=== PATIENT | male | born 1985 | race Caucasian/White ===

== ENCOUNTER 2019-04-28 21:10 | Emergency (ER) | payer MEDICAID ==
--- NOTE | 2019-04-28 21:43 | EDM.PDOC ---
ED HPI GENERAL MEDICAL PROBLEM - General Chief Complaint: Behavioral/Psych Time Seen by Provider: 04/28/19 21:28 Source of Information: Reports: Patient History Limitations: Reports: Altered Mental Status (Patient not oriented to situation.) - History of Present Illness INITIAL COMMENTS - FREE TEXT/NARRATIVE: 33-year-old male who presents to the emergency department with his aunt via private vehicle complaining of having worsening visual and auditory hallucinations and unable to control his thoughts. He tells me "I need to go to [facility]". He has fairly disorganized thought processes and really can' t tell me anything much more clearly than this. He talks about not sleeping or eating and then seems to report that he feels that he might try to harm himself or other people and then begins to talk about his Suboxone therapy. He apparently began Suboxone therapy about a week ago and he reports that since that time he has intermittently had itching all over. Yesterday he states he was basically up most of the night and he reports that he was outside smoking cigarettes continuously and he has irritation of his face. He also reports he had vomiting last night and again today several times. He reports that he has not been eating he denies any pain currently. And when he is asked about a rash that he has on his face and trunk as well as scratching all over, he reports that it due to his exposure to the cold and he becomes quite verbally aggressive when you try to discuss this with him. He denies any cough or trouble breathing. He is unable to tell me his medications. He seems to become more disorganized and less coherent as time goes on. No reported fevers or chills. There are no other associated signs or symptoms. There are no other modifying factors. No other history can be obtained.. Onset: Other (Unclear weeks 2 days) Duration: Getting Worse Location: Reports: Other (No pain) Quality: Reports: Other (Denies pain) Improves with: Reports: None Worsens with: Reports: None Context: Reports: Other (As above) Associated Symptoms: Reports: No Other Symptoms (Except as above) Treatments OPERATIONS OFFICER AFLOAT: Reports: Other (see below) (Nothing) - Related Data Allergies Allergy/AdvReac Type Severity Reaction Status Date / Time No Known Allergies Allergy Verified 01/01/16 18:38 Home Meds: Home Meds . [Unable to Verify Home Med List] 04/28/19 [History] Past Medical History Cardiovascular History: Reports: Hypertension Respiratory History: Reports: Asthma Other Musculoskeletal History: RT SHOULDER PAIN Neurological History: Reports: Seizure Psychiatric History: Reports: Addiction, Bipolar, Depression, Hallucinations, Mood Swings - Infectious Disease History Infectious Disease History: Reports: Hepatitis C - Past Surgical History Other Surgical History Comment: No previous surgeries. Social & Family History - Tobacco Use Smoking Status *Q: Current Every Day Smoker - Caffeine Use Caffeine Use: Reports: None - Alcohol Use Alcohol Use History: Yes - Recreational Drug Use Recreational Drug Use: No Recreational Drug Use Comment: Patient denies use of illicit drugs. ED ROS GENERAL - Review of Systems Review Of Systems: See Below Constitutional: Reports: No Symptoms HEENT: Reports: No Symptoms Respiratory: Reports: No Symptoms Cardiovascular: Reports: No Symptoms GI/Abdominal: Reports: No Symptoms : Reports: No Symptoms Musculoskeletal: Reports: No Symptoms Skin: Reports: Rash, Other (Itching all over) Neurological: Reports: No Symptoms Psychiatric: Reports: Hallucinations, Homicidal Ideation, Suicidal Ideation. Denies: Cravings Hematologic/Lymphatic: Reports: No Symptoms Immunologic: Reports: No Symptoms - Physical Exam Exam: See Below Exam Limited By: No Limitations General Appearance: Alert, Moderate Distress, Obese Eye Exam: Bilateral Eye: EOMI, Normal Inspection Ears: Normal External Exam Nose: Normal Inspection Throat/Mouth: Normal Voice, No Airway Compromise, Other (Try mucous membranes) Head Exam: Atraumatic, Normocephalic Neck: Normal Inspection, Supple, Non-Tender, Full Range of Motion Respiratory/Chest: No Respiratory Distress, Lungs Clear, Normal Breath Sounds, No Accessory Muscle Use, Chest Non-Tender Cardiovascular: No Murmur, Tachycardia GI/Abdominal: Normal Bowel Sounds, Soft, Non-Tender, No Mass Neuro Exam (Abbreviated): Alert, Oriented, CN II-XII Intact, No Motor/Sensory Deficits Back Exam: Normal Inspection, Full Range of Motion Extremities: Normal Inspection, Normal Range of Motion, Non-Tender, No Pedal Edema, Normal Capillary Refill Psychiatric: Flat Affect Skin Exam: Warm, Dry, Intact, Rash Course - Vital Signs Last Recorded V/S: Last Vital Signs Temp 36.8 C 04/28/19 21:10 Pulse 130 H 04/28/19 21:10 Resp 16 04/28/19 21:10 BP 149/83 H 04/28/19 21:10 Pulse Ox 96 04/28/19 21:10 - Orders/Labs/Meds Orders: Active Orders 24 hr Category Date Time Status EKG Documentation Completion [RC] ASDIRECTED Care 04/28/19 21:52 Active Sodium Chloride 0.9% [Normal Saline] 1,000 ml Med 04/28/19 22:00 Active IV ASDIRECTED Sodium Chloride 0.9% [Saline Flush] Med 04/28/19 21:51 Active 10 ml FLUSH ASDIRECTED PRN Peripheral IV Insertion Adult [OM.PC] Routine Oth 04/28/19 21:51 Ordered EKG 12 Lead [EK] Routine Ther 04/28/19 21:51 Ordered Medication Orders Sodium Chloride (Normal Saline) 1,000 mls @ 150 mls/hr IV ASDIRECTED IVAN Last Admin: 04/29/19 00:53 Dose: 150 mls/hr Sodium Chloride (Saline Flush) 10 ml FLUSH ASDIRECTED PRN PRN Reason: Keep Vein Open Last Admin: 04/28/19 22:17 Dose: 10 ml Labs: Laboratory Tests 04/28/19 04/28/19 04/28/19 Range/Units 20:04 20:04 20:04 WBC 6.9 (4.5-12.0) X10-3/uL RBC 4.79 (4.30-5.75) x10(6)uL Hgb 15.8 (13.5-17.8) g/dL Hct 44.7 (30.0-51.3) % MCV 93.2 (80-96) fL MCH 33.0 (27.7-33.6) pg MCHC 35.4 (32.2-35.4) g/dL RDW 12.9 (11.5-15.5) % Plt Count 226 (125-369) X10(3)uL MPV 7.7 (7.4-10.4) fL Neut % (Auto) 63.8 (46-82) % Lymph % (Auto) 24.6 (13-37) % Wheeler % (Auto) 8.2 (4-12) % Eos % (Auto) 3 (1.0-5.0) % Baso % (Auto) 0 (0-2) % Neut # (Auto) 4.4 (1.6-8.3) # Lymph # (Auto) 1.7 (0.6-5.0) # Wheeler # (Auto) 0.6 (0.0-1.3) # Eos # (Auto) 0.2 (0.0-0.8) # Baso # (Auto) 0.0 (0.0-0.2) # Sodium 141 (135-145) mmol/L Potassium 3.4 L (3.5-5.3) mmol/L Chloride 102 (100-110) mmol/L Carbon Dioxide 28 (21-32) mmol/L BUN 8 (7-18) mg/dL Creatinine 1.1 (0.70-1.30) mg/dL Est Cr Clr Drug Dosing TNP Estimated GFR (MDRD) > 60 (>60) BUN/Creatinine Ratio 7.3 L (9-20) Glucose 146 H (80-116) mg/dL Calcium 8.7 (8.6-10.2) mg/dL Magnesium 1.6 L (1.8-2.5) mg/dL Total Bilirubin 0.6 (0.1-1.3) mg/dL AST 51 H (5-25) IU/L ALT 105 H (12-36) U/L Alkaline Phosphatase 69 (56-112) IU/L Creatine Kinase 266 H (60-160) IU/L Troponin I 6.3 (4.0-60.3) pg/mL C-Reactive Protein 0.4 L (0.5-0.9) mg/dL Total Protein 7.0 (6.0-8.0) g/dL Albumin 3.6 (3.5-5.2) g/dL Globulin 3.4 g/dL Albumin/Globulin Ratio 1.1 Urine Color (YELLOW) Urine Appearance (CLEAR) Urine pH (5.0-6.5) Ur Specific [place] (1.010-1.025) Urine Protein (NEGATIVE) mg/dL Urine Glucose (UA) (NORMAL) mg/dL Urine Ketones (NEGATIVE) mg/dL Urine Occult Blood (NEGATIVE) Urine Nitrite (NEGATIVE) Urine Bilirubin (NEGATIVE) Urine Urobilinogen (NEGATIVE) mg/dL Ur Leukocyte Esterase (NEGATIVE) Urine RBC (0-5) Urine WBC (0-5) Ur Squamous Epith Cells (NS,R,O) Urine Bacteria (NS) Salicylates 3.2 (<2.8) mg/dL Urine Opiates Screen (NEGATIVE) Ur Oxycodone Screen (NEGATIVE) Ur Propoxyphene Screen (NEGATIVE) Acetaminophen < 2 L (<2) ug/mL Ur Barbituates Screen (NEGATIVE) Ur Tricyclics Screen (NEGATIVE) Ur Phencyclidine Scrn (NEGATIVE) Ur Amphetamine Screen (NEGATIVE) Urine MDMA Screen (NEGATIVE) U Benzodiazepines Scrn (NEGATIVE) U Cocaine Metab Screen (NEGATIVE) U Marijuana (THC) Screen (NEGATIVE) Ethyl Alcohol < 0.03 (<0.03) % 04/28/19 04/28/19 Range/Units 23:33 23:33 WBC (4.5-12.0) X10-3/uL RBC (4.30-5.75) x10(6)uL Hgb (13.5-17.8) g/dL Hct (30.0-51.3) % MCV (80-96) fL MCH (27.7-33.6) pg MCHC (32.2-35.4) g/dL RDW (11.5-15.5) % Plt Count (125-369) X10(3)uL MPV (7.4-10.4) fL Neut % (Auto) (46-82) % Lymph % (Auto) (13-37) % Wheeler % (Auto) (4-12) % Eos % (Auto) (1.0-5.0) % Baso % (Auto) (0-2) % Neut # (Auto) (1.6-8.3) # Lymph # (Auto) (0.6-5.0) # Wheeler # (Auto) (0.0-1.3) # Eos # (Auto) (0.0-0.8) # Baso # (Auto) (0.0-0.2) # Sodium (135-145) mmol/L Potassium (3.5-5.3) mmol/L Chloride (100-110) mmol/L Carbon Dioxide (21-32) mmol/L BUN (7-18) mg/dL Creatinine (0.70-1.30) mg/dL Est Cr Clr Drug Dosing Estimated GFR (MDRD) (>60) BUN/Creatinine Ratio (9-20) Glucose (80-116) mg/dL Calcium (8.6-10.2) mg/dL Magnesium (1.8-2.5) mg/dL Total Bilirubin (0.1-1.3) mg/dL AST (5-25) IU/L ALT (12-36) U/L Alkaline Phosphatase (56-112) IU/L Creatine Kinase (60-160) IU/L Troponin I (4.0-60.3) pg/mL C-Reactive Protein (0.5-0.9) mg/dL Total Protein (6.0-8.0) g/dL Albumin (3.5-5.2) g/dL Globulin g/dL Albumin/Globulin Ratio Urine Color Yellow (YELLOW) Urine Appearance Clear (CLEAR) Urine pH 6.0 (5.0-6.5) Ur Specific [place] 1.020 (1.010-1.025) Urine Protein Negative (NEGATIVE) mg/dL Urine Glucose (UA) Normal (NORMAL) mg/dL Urine Ketones Negative (NEGATIVE) mg/dL Urine Occult Blood Negative (NEGATIVE) Urine Nitrite Negative (NEGATIVE) Urine Bilirubin Negative (NEGATIVE) Urine Urobilinogen Normal (NEGATIVE) mg/dL Ur Leukocyte Esterase Negative (NEGATIVE) Urine RBC 0-5 (0-5) Urine WBC 0-5 (0-5) Ur Squamous Epith Cells Occasional (NS,R,O) Urine Bacteria Few H (NS) Salicylates (<2.8) mg/dL Urine Opiates Screen Negative (NEGATIVE) Ur Oxycodone Screen Negative (NEGATIVE) Ur Propoxyphene Screen Negative (NEGATIVE) Acetaminophen (<2) ug/mL Ur Barbituates Screen Negative (NEGATIVE) Ur Tricyclics Screen Negative (NEGATIVE) Ur Phencyclidine Scrn Negative (NEGATIVE) Ur Amphetamine Screen Negative (NEGATIVE) Urine MDMA Screen Negative (NEGATIVE) U Benzodiazepines Scrn Negative (NEGATIVE) U Cocaine Metab Screen Negative (NEGATIVE) U Marijuana (THC) Screen Negative (NEGATIVE) Ethyl Alcohol (<0.03) % Meds: Medications Generic Name Dose Route Start Last Admin Trade Name Freq PRN Reason Stop Dose Admin Sodium Chloride 1,000 mls @ 150 mls/hr 04/28/19 22:00 04/29/19 00:53 Normal Saline IV 150 mls/hr ASDIRECTED IVAN Administration Sodium Chloride 10 ml 04/28/19 21:51 02/16/20 22:17 Saline Flush FLUSH 10 ml ASDIRECTED PRN Administration Keep Vein Open Discontinued Medications Generic Name Dose Route Start Last Admin Trade Name Boq PRN Reason Stop Dose Admin Diphenhydramine HCl 25 mg 04/28/19 21:53 04/28/19 22:01 Benadryl IVPUSH 04/28/19 21:54 25 mg ONETIME ONE Administration Haloperidol Lactate 5 mg 04/28/19 23:58 04/29/19 00:13 Haldol IVPUSH 04/28/19 23:59 5 mg ONETIME ONE Administration Famotidine 20 mg/ Premix 50 mls @ 200 mls/hr 04/28/19 21:53 04/28/19 22:03 IV 04/28/19 21:54 200 mls/hr ONETIME ONE Administration Sodium Chloride 1,000 mls @ 999 mls/hr 04/28/19 21:53 04/29/19 00:24 Normal Saline IV 04/28/19 22:53 999 mls/hr .BOLUS ONE Administration Lorazepam 1 mg 04/28/19 21:53 04/28/19 22:01 Ativan IVPUSH 04/28/19 21:54 1 mg ONETIME ONE Administration Lorazepam 1 mg 04/28/19 23:54 04/29/19 00:13 Ativan IVPUSH 04/28/19 23:55 1 mg ONETIME ONE Administration Lorazepam 1 mg 04/29/19 01:09 04/29/19 01:14 Ativan IVPUSH 04/29/19 01:10 1 mg ONETIME ONE Administration Methylprednisolone Sodium Succinate 125 mg 04/28/19 21:53 04/28/19 22:13 Solu-Medrol IVPUSH 04/28/19 21:54 125 mg ONETIME ONE Administration - Re-Assessments/Exams Free Text/Narrative Re-Assessment/Exam: 04/29/19 00:10: Patient continues with agitation and delirium creasing confusion and persisting tachycardia his rash is unchanged. His blood tests and urine test do not point toward a cause or source. He appears to be suffering from some toxidrome as yet identified. He will need ICU care and monitoring and a level monitoring which is not available at this healthcare. Therefore, I we' ll call and discussed patient's case with at [facility] in [place] for transferring the patient. The aunt is in agreement with this plan. 04/29/19 00:30: I discussed patient's case with Dr. Garcia, hospitalist at [place] , and he has agreed to accept the patient in transfer. I will give the patient another milligram of Ativan IV as well as Haldol 5 mg IV secondary to his agitation. The patient will be transferred via ambulance to [facility] in [place] for direct admission. Departure - Departure Time of Disposition: 01:25 Disposition: DC/Tfer to Acute Hospital 02 Condition: Fair (Guarded) Clinical Impression: Agitation, Delirium, Encephalopathy acute - Discharge Information Referrals: PCP,None [Primary Care Provider] - Forms: ED Department Discharge Critical Care Note - Critical Care Note Total Time (mins): 95 Comments: Patient required ever-increasing inventions and iron level of monitoring and care. Total critical care time spent with the patient was 95 minutes. Sepsis Event Note - Focused Exam Vital Signs: Vital Signs Temp Pulse Resp BP Pulse Ox 04/28/19 21:10 36.8 C 130 H 16 149/83 H 96 Date Exam was Performed: 04/29/19 Time Exam was Performed: :25 - My Orders Last 24 Hours: My Active Orders 04/28/19 21:51 Sodium Chloride 0.9% [Saline Flush] 10 ml FLUSH ASDIRECTED PRN Peripheral IV Insertion Adult [OM.PC] Routine EKG 12 Lead [EK] Routine 04/28/19 21:52 EKG Documentation Completion [RC] ASDIRECTED 04/28/19 22:00 Sodium Chloride 0.9% [Normal Saline] 1,000 ml IV ASDIRECTED - Assessment/Plan Last 24 Hours: My Active Orders 04/28/19 21:51 Sodium Chloride 0.9% [Saline Flush] 10 ml FLUSH ASDIRECTED PRN Peripheral IV Insertion Adult [OM.PC] Routine EKG 12 Lead [EK] Routine 04/28/19 21:52 EKG Documentation Completion [RC] ASDIRECTED 04/28/19 22:00 Sodium Chloride 0.9% [Normal Saline] 1,000 ml IV ASDIRECTED
[2019-04-28 21:44] VITALS: BP 149/83; PULSE 130
[2019-04-28] MEDS ORDERED: Sodium Chloride 0.9% 10 ML Syringe FLUSH PRN (21:51)
[2019-04-28] MEDS ORDERED: Famotidine/Normal Saline 20 MG in Premix Bag 1 BAG IV ONE (21:53)
[2019-04-28] MEDS ORDERED: diphenhydrAMINE 50 MG/ML SDV IVPUSH ONE (21:53)
[2019-04-28] MEDS ORDERED: LORazepam 2 MG/ML SDV IVPUSH ONE ×2 (21:53→23:54)
[2019-04-28] MEDS ORDERED: methylPREDNISolone Sodium Succinate 125 MG/2 ML SDV IVPUSH ONE (21:53)
[2019-04-28] MEDS ORDERED: Sodium Chloride 0.9% 1,000 ML IV SCH (22:00)
[2019-04-28] MEDS: Sodium Chloride 0.9% 1,000 ML IV ONE (22:15)
[2019-04-28 22:26] LABS: ACETAMINOPHEN < 2 ug/mL (<2)
[2019-04-28] MEDS ORDERED: Haloperidol Lactate 5 MG/ML SDV IVPUSH ONE (23:58)
[2019-04-29] MEDS: Sodium Chloride 0.9% 1,000 ML IV ONE (00:24)
[2019-04-29] MEDS ORDERED: LORazepam 2 MG/ML SDV IVPUSH ONE (01:09)
== END 2019-04-29 01:25 ==
LOC: FB.ED 21:10
DX: G93.40 Encephalopathy, unspecified (principal); R41.0 Disorientation, unspecified; R45.1 Restlessness and agitation; F17.210 Nicotine dependence, cigarettes, uncomplicated; I10 Essential (primary) hypertension; J45.909 Unspecified asthma, uncomplicated
CPT/HCPCS: 36415; 80053; 80305; 80307; 81001; 82550; 83735; 84484; 85025; 86140; 93005; 96361; 96365; 96375; 96376; 99285; J1200; J1630; J2060; J2930; J7030

== ENCOUNTER 2024-09-30 17:34 | Emergency (ER) | payer MEDICAID ==
[2024-09-30 18:33] LABS: BASOPHILS ABSOLUTE AUTO 0.0 x10-3/uL (0.0-0.3); BASOPHILS PERCENT AUTO 0.4 % (0.3-3.8); EOSINOPHILS ABSOLUTE AUTO 0.2 x10-3/uL (0.0-0.6); EOSINOPHILS PERCENT AUTO 2.1 % (0.1-6.8); LYMPHOCYTES ABSOLUTE AUTO 1.5 x10-3/uL (0.5-4.5); LYMPHOCYTES PERCENT AUTO 14.0 % (15.8-45.3); MEAN PLATELET VOLUME 8.0 fL (6.7-11.0); MONOCYTES ABSOLUTE AUTO 0.7 x10-3/uL (0.0-1.2); MONOCYTES PERCENT AUTO 6.7 % (5.5-15.2); NEUTROPHILS ABSOLUTE AUTO 8.2 x10-3/uL (1.7-6.9); NEUTROPHILS PERCENT AUTO 76.8 % (40.3-71.8); PLATELET COUNT,PLT 276 x10(3)uL (117-477); RED BLOOD CELL COUNT 5.04 x10(6)uL (3.90-5.90); RED CELL DISTRIBUTION WIDTH 13.2 % (12.4-15.0); WHITE BLOOD CELL COUNT,WBC 10.7 x10-3/uL (3.2-10.1)
[2024-09-30 18:39] LABS: BLOOD UREA NITROGEN,BUN 10 mg/dL (7-18); CARBON DIOXIDE,CO2 27 mmol/L (21-32); CHLORIDE,CL 102 mmol/L (100-110); CREATININE 1.5 mg/dL (0.70-1.30); ESTIMATED GFR 61 mL/min (>60); GLUCOSE RANDOM 105 mg/dL (80-116); POTASSIUM,K 3.6 mmol/L (3.5-5.3); SODIUM,NA 137 mmol/L (135-145)
[2024-09-30 18:45] LABS: A/G RATIO 1.3; ALANINE AMINOTRANSFERASE,ALT 44 U/L (12-36); ASPARTATE AMNIOTRANSFERASE,AST 25 IU/L (5-25); BILIRUBIN TOTAL 0.9 mg/dL (0.1-1.3); PROTEIN TOTAL,TP 7.5 g/dL (6.0-8.0)
[2024-09-30] MEDS: LORazepam 2 MG/ML SDV IVPUSH ONE (19:45)
[2024-09-30] MEDS: LORazepam 2 MG/ML SDV ONE (19:49)
[2024-09-30 19:59] LABS: AMPHETAMINES SCREEN, URINE POSITIVE (NEGATIVE); METHADONE SCREEN, URINE NEGATIVE (NEGATIVE); METHAMPHETAMINE SCREEN, URINE POSITIVE (NEGATIVE); OXYCODONE SCREEN,URINE NEGATIVE (NEGATIVE)
[2024-09-30 20:00] LABS: BUPRENORPHINE SCREEN,URINE NEGATIVE (NEGATIVE)
[2024-09-30 20:42] VITALS: BP 141/66; PULSE 110
== END 2024-09-30 20:15 ==
LOC: FB.ED 17:34
DX: F15.10 Other stimulant abuse, uncomplicated (principal); R78.4 Finding of other drugs of addictive potential in blood; I10 Essential (primary) hypertension; Z79.899 Other long term (current) drug therapy
CPT/HCPCS: 80053; 80143; 80179; 80307; 85025; 93010; 96372; 96374; 96375; 99285; J1630; J2060